=== PATIENT | male | born 1950 | race Caucasian/White ===

== ENCOUNTER 2020-05-16 17:22 | Observation (INO) | payer OTHER ==
[2020-05-16] MEDS ORDERED: ASPIRIN 81 MG PO STA (18:24)
[2020-05-16] MEDS ORDERED: NITROGLYCERIN OINT 1 INCH/GM PACKET TOPICAL STA (18:24)
--- NOTE | 2020-05-16 18:26 | ED ---
General Adult HPI - General Chief complaint: Chest Pain Stated complaint: Chest pain Time Seen by Provider: 05/16/20 18:00 Source: patient, RN notes reviewed Mode of arrival: ambulatory Limitations: no limitations - History of Present Illness Initial comments: Patient is a pleasant 70-year-old male presenting to the emergency Department with complaints of chest discomfort. Onset of symptoms was 2 days ago. Symptoms have gradually gotten worse. Symptoms do worsen with exertion. Discomfort feels like tightness without radiation. Patient states his left arm feels a little bit funny however. No associated nausea or dyspnea. Patient does get sweaty at times. Patient did have similar symptoms years ago associated with heart problems and needing stent placement. - Related Data Allergies Allergy/AdvReac Type Severity Reaction Status Date / Time No Known Allergies Allergy Verified 05/16/20 17:39 Review of Systems ROS Statement: Those systems with pertinent positive or pertinent negative responses have been documented in the HPI. ROS Other: All systems not noted in ROS Statement are negative. Constitutional: Denies: fever Eyes: Denies: eye pain ENT: Denies: ear pain Respiratory: Denies: cough, dyspnea Cardiovascular: Reports: chest pain Endocrine: Reports: fatigue Gastrointestinal: Denies: abdominal pain, nausea Genitourinary: Denies: dysuria Musculoskeletal: Denies: back pain Skin: Denies: rash Neurological: Denies: weakness Past Medical History Past Medical History: COPD Additional Past Medical History / Comment(s): hypercholestremia. History of Any Multi-Drug Resistant Organisms: None Reported Additional Past Surgical History / Comment(s): cardiac stent, right arm Past Psychological History: No Psychological Hx Reported Smoking Status: Current every day smoker Past Alcohol Use History: None Reported Past Drug Use History: Marijuana General Exam Limitations: no limitations General appearance: alert, in no apparent distress Head exam: Present: normocephalic Eye exam: Present: normal appearance Neck exam: Present: normal inspection Respiratory exam: Present: normal lung sounds bilaterally. Absent: chest wall tenderness Cardiovascular Exam: Present: regular rate, normal rhythm Expanded Peripheral pulses: 2+: Radial (R), Radial (L), Posterior Tibialis (R), Posterior Tibialis (L) GI/Abdominal exam: Present: soft. Absent: distended, tenderness Extremities exam: Present: normal inspection. Absent: pedal edema, calf tenderness Neurological exam: Present: alert Psychiatric exam: Present: normal affect, normal mood Skin exam: Present: normal color Course Vital Signs 05/16/20 17:36 Temperature 98.0 F Pulse Rate 83 Respiratory 16 Rate Blood Pressure 153/75 O2 Sat by Pulse 96 Oximetry EKG Findings - EKG Comments: EKG Findings:: Normal sinus rhythm 67. LA 182. QRS 142. QT 444. QTC 46 he 9. Normal axis. Right bundle branch block. No acute ST change. Medical Decision Making - Medical Decision Making Patient reevaluated and resting comfortably in bed. Patient is feeling better. Patient updated on results and plan. [facility] has been paged for admission covering for hospital call. - Lab Data Result diagrams: 05/16/20 18:54 05/16/20 18:54 Lab Results 05/16/20 05/16/20 05/16/20 Range/Units 18:54 18:54 18:54 WBC 11.6 H (3.8-10.6) k/uL RBC 4.76 (4.30-5.90) m/uL Hgb 15.4 (13.0-17.5) gm/dL Hct 45.0 (39.0-53.0) % MCV 94.6 (80.0-100.0) fL MCH 32.3 (25.0-35.0) pg MCHC 34.1 (31.0-37.0) g/dL RDW 12.6 (11.5-15.5) % Plt Count 251 (150-450) k/uL Neutrophils % 69 % Lymphocytes % 21 % Monocytes % 7 % Eosinophils % 1 % Basophils % 0 % Neutrophils # 8.0 H (1.3-7.7) k/uL Lymphocytes # 2.5 (1.0-4.8) k/uL Monocytes # 0.8 (0-1.0) k/uL Eosinophils # 0.1 (0-0.7) k/uL Basophils # 0.0 (0-0.2) k/uL PT 10.1 (9.0-12.0) sec INR 1.0 (<1.2) APTT 23.2 (22.0-30.0) sec Sodium 135 L (137-145) mmol/L Potassium 3.9 (3.5-5.1) mmol/L Chloride 104 (98-107) mmol/L Carbon Dioxide 22 (22-30) mmol/L Anion Gap 9 mmol/L BUN 10 (9-20) mg/dL Creatinine 0.50 L (0.66-1.25) mg/dL Est GFR (CKD-EPI)AfAm >90 (>60 ml/min/1.73 sqM) Est GFR (CKD-EPI)NonAf >90 (>60 ml/min/1.73 sqM) Glucose 121 H (74-99) mg/dL Calcium 10.0 (8.4-10.2) mg/dL Magnesium 1.9 (1.6-2.3) mg/dL Total Bilirubin 1.3 (0.2-1.3) mg/dL AST 30 (17-59) U/L ALT 21 (4-49) U/L Alkaline Phosphatase 87 (38-126) U/L Troponin I (0.000-0.034) ng/mL Total Protein 7.4 (6.3-8.2) g/dL Albumin 4.8 (3.5-5.0) g/dL 05/16/20 Range/Units 18:54 WBC (3.8-10.6) k/uL RBC (4.30-5.90) m/uL Hgb (13.0-17.5) gm/dL Hct (39.0-53.0) % MCV (80.0-100.0) fL MCH (25.0-35.0) pg MCHC (31.0-37.0) g/dL RDW (11.5-15.5) % Plt Count (150-450) k/uL Neutrophils % % Lymphocytes % % Monocytes % % Eosinophils % % Basophils % % Neutrophils # (1.3-7.7) k/uL Lymphocytes # (1.0-4.8) k/uL Monocytes # (0-1.0) k/uL Eosinophils # (0-0.7) k/uL Basophils # (0-0.2) k/uL PT (9.0-12.0) sec INR (<1.2) APTT (22.0-30.0) sec Sodium (137-145) mmol/L Potassium (3.5-5.1) mmol/L Chloride (98-107) mmol/L Carbon Dioxide (22-30) mmol/L Anion Gap mmol/L BUN (9-20) mg/dL Creatinine (0.66-1.25) mg/dL Est GFR (CKD-EPI)AfAm (>60 ml/min/1.73 sqM) Est GFR (CKD-EPI)NonAf (>60 ml/min/1.73 sqM) Glucose (74-99) mg/dL Calcium (8.4-10.2) mg/dL Magnesium (1.6-2.3) mg/dL Total Bilirubin (0.2-1.3) mg/dL AST (17-59) U/L ALT (4-49) U/L Alkaline Phosphatase (38-126) U/L Troponin I <0.012 (0.000-0.034) ng/mL Total Protein (6.3-8.2) g/dL Albumin (3.5-5.0) g/dL - Radiology Data Radiology results: image reviewed (Chest x-ray shows no acute process) Disposition Clinical Impression: Chest pain Disposition: ADMITTED IP TO THIS [facility] Is patient prescribed a controlled substance at d/c from ED?: No Referrals: Nonstaff,Physician [Primary Care Provider] - 1-2 days Decision Time: 19:52
[2020-05-16 19:11] LABS: Basophils % (A) 0 %; Eosinophils # (A) 0.1 k/uL (0-0.7); Eosinophils % (A) 1 %; HGB 15.4 gm/dL (13.0-17.5); Lymphocytes # (A) 2.5 k/uL (1.0-4.8); Lymphocytes % (A) 21 %; MCH 32.3 pg (25.0-35.0); MCHC 34.1 g/dL (31.0-37.0); MCV 94.6 fL (80.0-100.0); Mean Platelet Volume 8.5; Monocytes # (A) 0.8 k/uL (0-1.0); Monocytes % (A) 7 %; Neutrophils % (A) 69 %; Platelet Count 251 k/uL (150-450); RBC 4.76 m/uL (4.30-5.90); RDW 12.6 % (11.5-15.5); WBC 11.6 k/uL (3.8-10.6)
[2020-05-16 19:23] LABS: Partial Thromboplastin Time 23.2 sec (22.0-30.0); Prothrombin Time 10.1 sec (9.0-12.0)
[2020-05-16 19:25] LABS: ALT 21 U/L (4-49); AST 30 U/L (17-59); African American GFR (CKD) >90 (>60 ml/min/1.73 sqM); Albumin 4.8 g/dL (3.5-5.0); Alkaline Phosphatase 87 U/L (38-126); Anion Gap 9 mmol/L; Blood Urea Nitrogen 10 mg/dL (9-20); Carbon Dioxide 22 mmol/L (22-30); Chloride 104 mmol/L (98-107); Glucose 121 mg/dL (74-99); Magnesium 1.9 mg/dL (1.6-2.3); Non-African American GFR(CKD) >90 (>60 ml/min/1.73 sqM); Potassium 3.9 mmol/L (3.5-5.1); Sodium 135 mmol/L (137-145); Total Bilirubin 1.3 mg/dL (0.2-1.3); Total Protein 7.4 g/dL (6.3-8.2)
--- NOTE | 2020-05-16 19:42 | XR ---
EXAMINATION TYPE: XR chest 2V DATE OF EXAM: 05/16/2020 COMPARISON: NONE HISTORY: Short of breath TECHNIQUE: 2 views FINDINGS: Heart and mediastinum are normal. Lungs are clear. Diaphragm is normal. Bony thorax is inta ct. There are chest leads. IMPRESSION: No active cardiopulmonary disease. Normal heart.
[2020-05-16] MEDS ORDERED: NITROGLYCERIN SL TABS 0.4 MG TAB SUBLINGUAL PRN (19:52)
[2020-05-16] MEDS ORDERED: HEPARIN SODIUM,PORCINE 5,000 UNIT/ML 1 ML VIAL IV PRN (22:58)
[2020-05-16] MEDS ORDERED: HEPARIN SODIUM,PORCINE 5,000 UNIT/ML 1 ML VIAL IV ONE (22:58)
[2020-05-16] MEDS ORDERED: ATORVASTATIN 80 MG TAB PO STA (22:59)
[2020-05-16] MEDS ORDERED: HEPARIN SOD,PORK IN 0.45% NACL 25,000 UNIT in 0.45% NACL 1 250ML.BAG IV SCH (23:00)
--- NOTE | 2020-05-16 23:01 | P.HPIM ---
History of Present Illness H&P Date: 05/16/20 The patient is a 70-year-old male with a PMH of coronary artery disease status post [place] and multiple stents, hypertension, and hyperlipidemia, a resident of [place], presented to the ED with complaints of chest discomfort. The patient reports that over the past 3 days, he has noted left-sided intermittent sharp/pressure like chest pain. He reports that during each of those episodes, he had been golfing when he developed his discomfort with associated lightheadedness, nausea, and diaphoresis. The pain worsened over the past few days. Pain was nonexertional, nonradiating, 5 out of 10 in intensity, nonpleuritic, and lasted for roughly 3-4 hours earlier today, at which time he decided to activate EMS. He reports that he was golfing and proceeded to sit down now it did not alleviate his symptoms. The pain had resolved prior to his presentation to the emergency room and he reported no pain at time of interview. He denied cough, fever, chills, diarrhea, loss of consciousness, or palpita tions. He reports that his symptoms are very similar to when he previously had an [place] and received stents. He is currently in [place] visiting his elderly mother. In the emergency room, troponin was less than 0.012, chest x-ray unremarkable, with EKG showing normal sinus rhythm at 67 bpm with a right bundle branch block as reviewed by me. Review of Systems Pertinent positives and negatives as discussed in HPI, a complete review of systems was performed and all other systems are negative. Past Medical History Past Medical History: COPD Additional Past Medical History / Comment(s): hypercholestremia. History of Any Multi-Drug Resistant Organisms: None Reported Additional Past Surgical History / Comment(s): cardiac stent, right arm Past Psychological History: No Psychological Hx Reported Smoking Status: Current every day smoker Past Alcohol Use History: None Reported Past Drug Use History: Marijuana Medications and Allergies Home Medications Medication Instructions Recorded Confirmed Type Aspirin [Adult Low Dose Aspirin EC] 81 mg PO DAILY 05/16/20 05/16/20 History Atorvastatin Calcium [Lipitor] 40 mg PO DAILY 05/16/20 05/16/20 History Cholecalciferol [Vitamin D3 (25 1,000 unit PO DAILY 05/16/20 05/16/20 History Mcg = 1000 Iu)] Fish Oil/Dha/Epa [Fish Oil 1,200 1 cap PO DAILY 05/16/20 05/16/20 History mg Fish Oil] Metoprolol Tartrate 12.5 mg PO BID 05/16/20 05/16/20 History Multivitamins, Thera [Multivitamin 1 tab PO DAILY 05/16/20 05/16/20 History (formulary)] Omeprazole 20 mg PO DAILY 05/16/20 05/16/20 History Ubidecarenone [Co Q-10] 200 mg PO DAILY 05/16/20 05/16/20 History amLODIPine [Norvasc] 5 mg PO DAILY 05/16/20 05/16/20 History Allergies Allergy/AdvReac Type Severity Reaction Status Date / Time No Known Allergies Allergy Verified 05/16/20 21:11 Physical Exam Vitals: Vital Signs Temp Pulse Resp BP Pulse Ox 05/16/20 20:00 59 L 16 130/80 95 05/16/20 19:30 64 12 95 05/16/20 19:00 64 12 163/86 95 05/16/20 18:32 91 L 05/16/20 17:36 98.0 F 83 16 153/75 96 Intake and Output 05/16/20 05/16/20 05/16/20 06:59 14:59 22:59 Other: Weight 79.379 kg General: non toxic, no distress, appears at stated age, normal weight Derm: no unusual rashes/lesions no unusual ecchymoses, warm, dry Head: atraumatic, normocephalic, symmetric Eyes: EOMI, no lid lag, anicteric sclera, pupils equal round reactive to light ENT: Nose and ears atraumatic, no thrush, no pharyngeal erythema Neck: No thyromegaly, no cervical lymphadenopathy, trachea midline, supple Mouth: no lip lesion, mucus membranes moist Cardiovascular: S1S2 reg, no murmur, positive posterior tibial pulse bilateral, no edema, capillary refill less than 2 seconds Lungs: CTA bilateral, no rhonchi, no rales , no accessory muscle use Abdominal: soft, nontender to palpation, no guarding, no appreciable organomegaly, normal bowel sounds Ext: no gross muscle atrophy, muscle strength 5 out of 5 in all 4 extremities grossly, no contractures, Neuro: CN II-XI grossly intact, light touch intact all 4 extremities, finger to nose within normal limits, Psych: Alert, oriented, appropriate affect Results CBC & Chem 7: 05/16/20 23:30 05/16/20 18:54 Labs: Abnormal Lab Results - Last 24 Hours (Table) 05/16/20 05/16/20 Range/Units 18:54 18:54 WBC 11.6 H (3.8-10.6) k/uL Neutrophils # 8.0 H (1.3-7.7) k/uL Sodium 135 L (137-145) mmol/L Creatinine 0.50 L (0.66-1.25) mg/dL Glucose 121 H (74-99) mg/dL Assessment and Plan Plan: Unstable angina -Start heparin infusion -Continue with Lipitor, aspirin -Cardiac monitoring -Trend troponin -Cardiology consult -supplemental oxygen Leukocytosis, no signs of active infection at this time -Likely secondary to acute tress Chronic conditions: Hypertension, hyperlipidemia -Continue with home meds DVT prophylaxis -Heparin infusion The patient is admitted with an anticipated less than 2 midnight stay for evaluation of unstable angina CODE STATUS: Full Code Discussed with: Patient Anticipated discharge date: 1-[address]: Home A total of 40 minutes was spent on the care of this complex patient more than 50% of the time was spent in counseling and care coordination.
[2020-05-16 23:49] LABS: Basophils % (A) 0 %; Eosinophils # (A) 0.1 k/uL (0-0.7); Eosinophils % (A) 1 %; HCT 42.7 % (39.0-53.0); HGB 14.7 gm/dL (13.0-17.5); Lymphocytes # (A) 3.9 k/uL (1.0-4.8); Lymphocytes % (A) 33 %; MCH 32.9 pg (25.0-35.0); MCHC 34.4 g/dL (31.0-37.0); MCV 95.8 fL (80.0-100.0); Mean Platelet Volume 8.6; Monocytes # (A) 0.7 k/uL (0-1.0); Monocytes % (A) 6 %; Neutrophils # (A) 6.7 k/uL (1.3-7.7); Neutrophils % (A) 57 %; Platelet Count 222 k/uL (150-450); RBC 4.45 m/uL (4.30-5.90); RDW 12.8 % (11.5-15.5); WBC 11.8 k/uL (3.8-10.6)
[2020-05-17 00:13] LABS: INR 1.1 (<1.2)
[2020-05-17 00:25] LABS: Partial Thromboplastin Time 72.7 sec (22.0-30.0)
[2020-05-17] MEDS: NITROGLYCERIN OINT 1 INCH/GM PACKET TOPICAL SCH ×2 (02:25→06:43)
[2020-05-17 06:30] LABS: Basophils % (A) 0 %; Eosinophils # (A) 0.1 k/uL (0-0.7); Eosinophils % (A) 1 %; HCT 40.9 % (39.0-53.0); HGB 13.8 gm/dL (13.0-17.5); Lymphocytes # (A) 2.9 k/uL (1.0-4.8); Lymphocytes % (A) 32 %; MCH 32.3 pg (25.0-35.0); MCHC 33.8 g/dL (31.0-37.0); MCV 95.5 fL (80.0-100.0); Mean Platelet Volume 8.7; Monocytes # (A) 0.5 k/uL (0-1.0); Monocytes % (A) 6 %; Neutrophils # (A) 5.4 k/uL (1.3-7.7); Neutrophils % (A) 58 %; Platelet Count 226 k/uL (150-450); RBC 4.28 m/uL (4.30-5.90); RDW 12.6 % (11.5-15.5); WBC 9.2 k/uL (3.8-10.6)
[2020-05-17 06:54] LABS: Cholesterol 152 mg/dL (<200); HDL Cholesterol 51 mg/dL (40-60); LDL Cholesterol,Calculated 32 mg/dL (0-99); Triglycerides 344 mg/dL (<150)
[2020-05-17 07:10] VITALS: PULSE 66
[2020-05-17] MEDS ORDERED: PANTOPRAZOLE 40 MG TABLET PO SCH (07:30)
[2020-05-17 08:27] VITALS: BP 135/65; RESP 16; TEMP 97.7
[2020-05-17] MEDS ORDERED: amLODIPine 5 MG TAB PO SCH (09:00)
[2020-05-17] MEDS ORDERED: METOPROLOL TARTRATE 25 MG TAB PO SCH (09:00)
[2020-05-17] MEDS ORDERED: ASPIRIN 325 MG TAB PO SCH (09:00)
--- NOTE | 2020-05-17 09:49 | P.CRDCN ---
History of Present Illness Consult date: 05/17/20 Requesting physician: Adam Hopkins Reason for Consult (text): chest pain Chief complaint: dizziness, fatigue, chest pain History of present illness: this is a pleasant 70-year-old gentleman who resides in [place] and is here in [place] visiting his mother. He follows with Dr. [facility] out [facility] [place] [facility] [place]. He has a history of hypertension, hyperlipidemia, nicotine dependence, he smokes almost one pack per day, current everyday drinker usually 4 beers but has recently been taking shots of whiskey, history of CAD with 2 stents placed to the RCA about 2 years ago. He presented to the emergency department with complaints of progressively worsening fatigue and symptoms of exertional chest discomfort. He is also been experiencing diaphoresis. He's been experiencing some dizziness and lightheadedness but this is unrelated to his chest pain. The pain reminds him of what he experienced prior to his stenting. It is relieved with rest and is only occurring with activity. She has not tried nitroglycerin for the discomfort as he does not have any. According to him [facility] [place] [facility] was last seen last year. It is unclear when his last testing was but he believes it was done last year as well. EKG on admission showed sinus rhythm with a right bundle branch block.blood pressure was initially high on presentation but is better with a blood pressure 135/65 this morning. He has been afebrile. laboratory values on admission showed a white blood cell count 11.6, potassium 3.9, BUN 10, creatinine 0.5, troponins negative 3, elevated triglycerides at 344 with an LDL 32.chest x-ray on admission showed no active cardiopulmonary disease, normal heart.he is currently on aspirin, amlodipine 5 mg by mouth daily, metoprolol tartrate 12.5 mg by mouth twice a day, and Nitropaste. He's been initiated on a heparin drip per protocol. Upon examination this morning, patient is resting comfortably in bed. He has no current complaints of chest discomfort. In these had no complaints of dizziness or lightheadedness since admission. Past Medical History Past Medical History: COPD Additional Past Medical History / Comment(s): hypercholestremia. History of Any Multi-Drug Resistant Organisms: None Reported Additional Past Surgical History / Comment(s): cardiac stent, right arm Past Anesthesia/Blood Transfusion Reactions: No Reported Reaction Past Psychological History: No Psychological Hx Reported Smoking Status: Current every day smoker Past Alcohol Use History: None Reported Past Drug Use History: Marijuana Medications and Allergies Home Medications Medication Instructions Recorded Confirmed Type Aspirin [Adult Low Dose Aspirin EC] 81 mg PO DAILY 05/16/20 05/16/20 History Atorvastatin Calcium [Lipitor] 40 mg PO DAILY 05/16/20 05/16/20 History Cholecalciferol [Vitamin D3 (25 1,000 unit PO DAILY 05/16/20 05/16/20 History Mcg = 1000 Iu)] Fish Oil/Dha/Epa [Fish Oil 1,200 1 cap PO DAILY 05/16/20 05/16/20 History mg Fish Oil] Metoprolol Tartrate 12.5 mg PO BID 05/16/20 05/16/20 History Multivitamins, Thera [Multivitamin 1 tab PO DAILY 05/16/20 05/16/20 History (formulary)] Omeprazole 20 mg PO DAILY 05/16/20 05/16/20 History Ubidecarenone [Co Q-10] 200 mg PO DAILY 05/16/20 05/16/20 History amLODIPine [Norvasc] 5 mg PO DAILY 05/16/20 05/16/20 History Allergies Allergy/AdvReac Type Severity Reaction Status Date / Time No Known Allergies Allergy Verified 05/16/20 21:11 Physical Exam Vitals: Vital Signs Temp Pulse Pulse Resp BP BP BP 05/17/20 08:23 97.7 F 16 135/65 05/17/20 03:00 97.9 F 66 18 145/72 05/17/20 01:42 97.5 F L 60 17 132/85 05/16/20 22:20 98.0 F 61 18 115/62 05/16/20 22:18 61 18 115/62 05/16/20 20:00 59 L 16 130/80 05/16/20 19:30 64 12 05/16/20 19:00 64 12 163/86 05/16/20 18:32 05/16/20 17:36 98.0 F 83 16 153/75 Pulse Ox 05/17/20 08:23 96 05/17/20 03:00 97 05/17/20 01:42 97 05/16/20 22:20 95 08/14/20 22:18 95 05/16/20 20:00 95 05/16/20 19:30 95 05/16/20 19:00 95 05/16/20 18:32 91 L 05/16/20 17:36 96 Intake and Output 05/16/20 05/17/20 05/17/20 22:59 06:59 14:59 Intake Total 59.958 Balance 59.958 Intake: Intake, IV Titration 59.958 Amount Heparin Sod,Pork in 0.45% 59.958 NaCl 25,000 unit In 0.45 % NaCl 1 250ml.bag @ 12 UNITS/KG/HR 9.525 mls/hr IV .Q24H [facility] Rx#: [id number] Other: Voiding Method Toilet # Voids 2 Weight 79.379 kg PHYSICAL EXAMINATION: This is a 70-year-old male in no apparent distress at the time of my examination. VITAL SIGNS: Blood pressure 135/65, heart rate 66, respirations 16, temp 87.7F. Patient is 96% on room air. HEENT: Head is atraumatic, normocephalic. Pupils are equal, round. Sclerae anicteric. Conjunctivae are clear. Mucous membranes of the mouth are moist. Neck is supple. [There is no elevated jugular venous pressure]. No carotid bruit is heard. CHEST EXAMINATION:[ lungs reveal scattered rhonchi that clear with coughing. No wheezes or rales. Respirations even and nonlabored.] HEART EXAMINATION: [ Heart regular, positive S1 and S2. No S3. No S4. with a systolic murmur. ABDOMEN: Soft, nontender. Bowel sounds are heard. No organomegaly noted. EXTREMITIES:[ 2+ peripheral pulses with no evidence of peripheral edema and no calf tenderness noted]. NEUROLOGIC EXAMINATION: Patient is awake, alert and oriented x3. Results 05/17/20 06:12 05/16/20 18:54 Cardiac Enzymes 05/16/20 05/16/20 05/16/20 Range/Units 18:54 18:54 21:25 AST 30 (17-59) U/L Troponin I <0.012 <0.012 (0.000-0.034) ng/mL 05/17/20 Range/Units 01:25 AST (17-59) U/L Troponin I <0.012 (0.000-0.034) ng/mL Coagulation 05/16/20 05/16/20 05/17/20 Range/Units 18:54 23:30 06:12 PT 10.1 11.0 (9.0-12.0) sec APTT 23.2 72.7 H 38.7 H (22.0-30.0) sec Lipids 05/17/20 Range/Units 06:12 Triglycerides 344 H (<150) mg/dL Cholesterol 152 (<200) mg/dL HDL Cholesterol 51 (40-60) mg/dL CBC 05/16/20 05/16/20 05/17/20 Range/Units 18:54 23:30 06:12 WBC 11.6 H 11.8 H 9.2 (3.8-10.6) k/uL RBC 4.76 4.45 4.28 L (4.30-5.90) m/uL Hgb 15.4 14.7 13.8 (13.0-17.5) gm/dL Hct 45.0 42.7 40.9 (39.0-53.0) % Plt Count 251 222 226 (150-450) k/uL Comprehensive Metabolic Panel 05/16/20 Range/Units 18:54 Sodium 135 L (137-145) mmol/L Potassium 3.9 (3.5-5.1) mmol/L Chloride 104 (98-107) mmol/L Carbon Dioxide 22 (22-30) mmol/L BUN 10 (9-20) mg/dL Creatinine 0.50 L (0.66-1.25) mg/dL Glucose 121 H (74-99) mg/dL Calcium 10.0 (8.4-10.2) mg/dL AST 30 (17-59) U/L ALT 21 (4-49) U/L Alkaline Phosphatase 87 (38-126) U/L Total Protein 7.4 (6.3-8.2) g/dL Albumin 4.8 (3.5-5.0) g/dL Current Medications Generic Name Dose Route Start Last Admin Trade Name Freq PRN Reason Stop Dose Admin Amlodipine Besylate 5 mg 05/17/20 09:00 Norvasc PO DAILY [facility] Aspirin 325 mg 05/17/20 09:00 Aspirin PO DAILY [facility] Atorvastatin Calcium 80 mg 05/17/20 21:00 Lipitor PO HS NURA Heparin Sodium (Porcine) 0 unit 05/16/20 22:58 Heparin IV PER PROTOCOL PRN Low PTT Protocol Heparin Sodium/Sodium Chloride 250 mls @ 9.525 mls/hr 05/16/20 23:00 05/17/20 06:45 25,000 unit/ Sodium Chloride IV 12 units/kg/hr .Q24H NURA 9.525 mls/hr Titration Protocol 12 UNITS/KG/HR Metoprolol Tartrate 12.5 mg 05/17/20 09:00 Lopressor PO BID NURA Nitroglycerin 0.4 mg 05/16/20 19:52 Nitrostat SUBLINGUAL Q5M PRN Chest Pain Nitroglycerin 1 inch 05/17/20 00:00 05/17/20 06:43 Nitro-Bid Oint TOPICAL Not Given Q6HR NURA Pantoprazole Sodium 40 mg 05/17/20 07:30 05/17/20 06:45 Protonix PO 40 mg DAILY@0730 NURA Administration Sodium Chloride 10 ml 05/16/20 21:00 05/16/20 23:33 Saline Flush IV Not Given BID NURA Intake and Output 05/16/20 05/17/20 05/17/20 22:59 06:59 14:59 Intake Total 59.958 Balance 59.958 Intake: Intake, IV Titration 59.958 Amount Heparin Sod,Pork in 0.45% 59.958 NaCl 25,000 unit In 0.45 % NaCl 1 250ml.bag @ 12 UNITS/KG/HR 9.525 mls/hr IV .Q24H [facility] Rx#: [id number] Other: Voiding Method Toilet # Voids 2 Weight 79.379 kg 05/17/20 06:12 05/16/20 18:54 EKG Interpretations (text) sinus rhythm with a right bundle branch block Assessment and Plan Assessment: #1 symptoms of chest discomfort with fatigue and diaphoresis, highly suggestive of angina #2 CAD with stenting to the RCA done about 2 years ago #3 hypertension #4 hyperlipidemia #5 nicotine dependence #6 alcohol use Plan: From Cardiology's perspective, we recommend coronary angiography for definitive diagnosis. The risks, benefits and alternative therapies for the above-mentioned procedure and for both sedation/analgesia as well as necessary blood product administration, if indicated, have been discussed with the patient. The patient has indicated understanding and acceptance of the risks and procedures discussed. Questions have been answered appropriately and he is agreeable to move forward with the above stated procedure. further recommendations to follow depending on findings. [employer] note has been reviewed, I agree with a documented findings and plan of care. Patient was seen and examined.
[2020-05-17] MEDS ORDERED: SODIUM CHLORIDE 0.9% 1,000 ML in EMPTY BAG 1 BAG IV ONE (10:13)
[2020-05-17] MEDS ORDERED: ATORVASTATIN 80 MG TAB PO STA (10:13)
[2020-05-17] MEDS ORDERED: ASPIRIN 325 MG TAB PO STA (10:13)
[2020-05-17] MEDS ORDERED: ALPRAZolam 0.5 MG TAB PO PRN (10:13)
[2020-05-17] MEDS ORDERED: NITROGLYCERIN SL TABS 0.4 MG TAB SUBLINGUAL PRN (10:13)
[2020-05-17] MEDS ORDERED: ALPRAZolam 0.25 MG TAB PO PRN (10:13)
[2020-05-17] MEDS ORDERED: ATORVASTATIN 80 MG TAB PO SCH (21:00)
--- NOTE | 2020-05-17 21:59 | P.DS ---
Providers Date of admission: 05/16/20 19:54 Expected date of discharge: 05/17/20 Attending physician: Adam Hopkins MD Consults: 05/16/20 19:52 Consult Physician Urgent Consulting Provider: Tadeo Hillman Consult Reason/Comments: cp Do you want consulting provider notified?: Yes Primary care physician: Physician Nonstaff Hospital Course: Discharge Diagnosis: This is not a discharge summary but a summary of care as patient left AGAINST MEDICAL ADVICE Unstable angina Coronary artery disease History of myocardial infarction Hypertension Dyslipidemia Leukocytosis Tobacco abuse Alcohol use Hospital Course: Patient is a 70-year-old male for history of coronary artery disease status post multiple myocardial infarctions with stents, hypertension, and dyslipidemia who is in [place] visiting from [place] who presented to the emergency department with chest discomfort. In the ER he underwent extensive evaluation. His EKG showed a right bundle branch block with T-wave inversion in V1 through V3. Initial troponin was negative. He is admitted as chest pain observation. Recurrent troponin was negative. He was started on a heparin drip, and nitro. He had some relief of his chest pain. He refused further nitro. He was also maintained on a beta kate. Cardiology was consulted and recommended cardiac catheterization. Patient asked to come complete this in [place] once he returned. Both myself and the cardiology nurse practitioner advised that this should be done here as he could have worsening symptoms including myocardial infarction, arrhythmia, and should he put off having this procedure done. Patient initially agreed and plans were for cardiac cath on 05/17. I was notified by nursing that patient had left AMA after he had already left the building. Patient seen and examined at bedside. Chest pain free, feeling much better, thinks he is back to baseline Vital signs reviewed and stable. General: non toxic, no distress, thin, disheveled Derm: warm, dry Head: atraumatic, normocephalic, symmetric Eyes: EOMI, no lid lag, anicteric sclera Mouth: no lip lesion, mucus membranes moist Cardiovascular: S1S2 reg, no murmur, positive posterior tibial pulse bilateral, Lungs: CTA bilateral, no rhonchi, no rales , no accessory muscle use Abdominal: soft, nontender to palpation, no guarding, no appreciable organomegaly Ext: no gross muscle atrophy, no edema, no contractures Neuro: CN II-XI grossly intact, no focal neuro deficits Psych: Alert, oriented, appropriate affect A total of 25 minutes of time were spent preparing this complex discharge summary . Patient Condition at Discharge: Stable Plan - Discharge Summary Discharge Rx Participant: No New Discharge Prescriptions: No Action Fish Oil/Dha/Epa [Fish Oil 1,200 mg Fish Oil] 1 cap PO DAILY Cholecalciferol [Vitamin D3 (25 Mcg = 1000 Iu)] 1,000 unit PO DAILY amLODIPine [Norvasc] 5 mg PO DAILY Multivitamins, Thera [Multivitamin (formulary)] 1 tab PO DAILY Aspirin [Adult Low Dose Aspirin EC] 81 mg PO DAILY Omeprazole 20 mg PO DAILY Metoprolol Tartrate 12.5 mg PO BID Atorvastatin Calcium [Lipitor] 40 mg PO DAILY Ubidecarenone [Co Q-10] 200 mg PO DAILY Albuterol Sulfate [Ventolin HFA] 1 - 2 puff INHALATION RT-QID PRN PRN Reason: Shortness Of Breath Discharge Medication List Aspirin [Adult Low Dose Aspirin EC] 81 mg PO DAILY 05/16/20 [History] Atorvastatin Calcium [Lipitor] 40 mg PO DAILY 05/16/20 [History] Cholecalciferol [Vitamin D3 (25 Mcg = 1000 Iu)] 1,000 unit PO DAILY 05/16/20 [History] Fish Oil/Dha/Epa [Fish Oil 1,200 mg Fish Oil] 1 cap PO DAILY 05/16/20 [History] Metoprolol Tartrate 12.5 mg PO BID 05/16/20 [History] Multivitamins, Thera [Multivitamin (formulary)] 1 tab PO DAILY 05/16/20 [History] Omeprazole 20 mg PO DAILY 05/16/20 [History] Ubidecarenone [Co Q-10] 200 mg PO DAILY 05/16/20 [History] amLODIPine [Norvasc] 5 mg PO DAILY 05/16/20 [History] Albuterol Sulfate [Ventolin HFA] 1 - 2 puff INHALATION RT-QID PRN 05/17/20 [History] Follow up Appointment(s)/Referral(s): Nonstaff,Physician [Primary Care Provider] - 1-2 days Discharge Disposition: Left Against Medical Advice
--- NOTE | 2020-05-20 08:37 | ECHOF ---
Referral Reason: MEASUREMENTS -------- HEIGHT: 180.3 cm WEIGHT: 79.4 kg BP: RVIDd: 2.9 cm (< 3.3) IVSd: 1.0 cm (0.6 - 1.1) LVIDd: 4.6 cm (3.9 - 5.3) LVPWd: 0.9 cm (0.6 - 1.1) EDV(Teich): 96 ml IVSs: 1.2 cm LVIDs: 3.2 cm LVPWs: 1.5 cm %IVS Thck: 21 % ESV(Teich): 42 ml EF(Teich): 56 % %FS: 29 % SV(Teich): 54 ml IVC: 0.9 cm LALs A4C: 4.0 cm LAAs A4C: 10.6 cm LAESV A-L A4C: 23 ml LAESV MOD A4C: 22 ml LALs A2C: 4.5 cm LAAs A2C: 12.8 cm LAESV A-L A2C: 31 ml LAESV MOD A2C: 30 ml LAESV(A-L): 28 ml LAESV Index (A-L): 14.23 ml/m Ao Diam: 3.4 cm (2.0 - 3.7) AV Cusp: 2.1 cm (1.5 - 2.6) LA Diam: 2.8 cm (2.7 - 3.8) MV EXCURSION: 16.659 mm (> 18.000) MV EF SLOPE: 107 mm/s (70 - 150) EPSS: 0.6 cm MV E Mode: 0.71 m/s MV DecT: 312 ms MV Dec [place]: 2.3 m/s MV A Mode: 0.88 m/s MV E/A Ratio: 0.81 MV PHT: 90 ms MR Vmax: 1.53 m/s MR maxP.31 mmHg AV Vmax: 1.38 m/s AV maxP.67 mmHg AR Vmax: 3.16 m/s AR maxP.95 mmHg AR PHT: 1400 ms AR Dec Time: 4828 ms AR Dec [place]: 0.7 m/s TR Vmax: 1.22 m/s TR maxP.99 mmHg RAP: 5.00 mmHg RVSP: 10.99 mmHg FINDINGS -------- Sinus rhythm. This was a technically adequate study. The left ventricular size is normal. Left ventricular wall thickness is normal. Overall left vent ricular systolic function is normal with, an EF between 55 - 60 %. The diastolic filling pattern is normal for the age of the patient 9.75. The right ventricle is normal in size. The left atrial size is normal. Normal LA size by volume 22+/-6 ml/m2. The right atrial size is normal. Interatrial and interventricular septum intact. The aortic valve is trileaflet, and appears structurally normal. No aortic stenosis or regurgitation. The mitral valve is normal. Mild mitral regurgitation is present. The tricuspid valve appears structurally normal. Mild tricuspid regurgitation present. Right vent ricular systolic pressure is normal at < 35 mmHg. There is no pulmonic regurgitation present. The aortic root size is normal. Normal inferior vena cava with normal inspiratory collapse consistent with estimated right atrial pre ssure of 5 mmHg. There is no pericardial effusion. CONCLUSIONS -------- 1. Left ventricular wall thickness is normal. 2. Overall left ventricular systolic function is normal with, an EF between 55 - 60 %. 3. The diastolic filling pattern is normal for the age of the patient 9.75 4. Normal LA size by volume 22+/-6 ml/m2. 5. The aortic valve is trileaflet, and appears structurally normal. No aortic stenosis or regurgitati on. 6. Mild mitral regurgitation is present. 7. Mild tricuspid regurgitation present. COMMUNICATIONS INSTRUCTOR: Kenia Vegas RDCS
== END 2020-05-17 11:58 | disposition left against medical advice (07) ==
LOC: EC 17:22 → 3NCARDOBS 19:54
PROVIDERS: ADMIT Internal Medicine; ATTEND Internal Medicine
DX: I25.110 Atherosclerotic heart disease of native coronary artery with unstable angina pectoris (principal); I10 Essential (primary) hypertension; I45.10 Unspecified right bundle-branch block; J44.9 Chronic obstructive pulmonary disease, unspecified; E78.5 Hyperlipidemia, unspecified; E78.00 Pure hypercholesterolemia, unspecified; D72.829 Elevated white blood cell count, unspecified; Z95.5 Presence of coronary angioplasty implant and graft; F17.200 Nicotine dependence, unspecified, uncomplicated; I25.2 Old myocardial infarction; Z79.82 Long term (current) use of aspirin; Z79.899 Other long term (current) drug therapy; Z72.89 Other problems related to lifestyle; Z53.29 Procedure and treatment not carried out because of patient's decision for other reasons
CPT/HCPCS: 93005 ×2; 96365; 96366; 96376; 99285; 36415; 93306; 80061; 80053; 83735; 84484 ×2; 85025 ×2; 85610; 85730 ×2; 71046; G0378 ×2; J1644 ×2

== ENCOUNTER 2020-05-18 15:35 | Observation (INO) | payer MEDICARE, OTHER ==
[2020-05-18] MEDS ORDERED: NITROGLYCERIN SL TABS 0.4 MG TAB SUBLINGUAL PRN (16:09)
[2020-05-18] MEDS ORDERED: ASPIRIN 81 MG PO STA (16:09)
--- NOTE | 2020-05-18 16:48 | XR ---
EXAMINATION TYPE: XR chest 2V DATE OF EXAM: 05/18/2020 COMPARISON: 05/16/2020 HISTORY: Chest pain TECHNIQUE: FINDINGS: Heart and mediastinum are normal. Lungs are clear. Diaphragm is normal. Bony thorax appears normal. IMPRESSION: Normal chest. No change.
--- NOTE | 2020-05-18 16:50 | ED ---
Chest Pain HPI - General Chief Complaint: Chest Pain Stated Complaint: Dizzy,chest pain Time Seen by Provider: 05/18/20 15:51 Source: patient, RN notes reviewed, old records reviewed Mode of arrival: wheelchair - History of Present Illness Initial Comments: This is a 70-year-old male presenting for persistent chest pain. History of heart disease and stents. Patient was admitted recently for chest pain with Tuesday secondary to anxiety and and event with his family. At this time patient states he is less nervous for this event and is willing to go through with procedure. Still having chest pain MD Complaint: chest pain -: days(s) Onset: during rest, during exertion Pain Location: substernal Pain Radiation: none Severity: mild Severity scale (1-10): 3 Quality: tightness, heaviness Consistency: intermittent Improves With: nothing Worsens With: nothing Other Symptoms: palpitations Treatments Prior to Arrival: none - Related Data Home Medications Medication Instructions Recorded Confirmed Aspirin [Adult Low Dose Aspirin EC] 81 mg PO DAILY 05/16/20 05/17/20 Atorvastatin Calcium [Lipitor] 40 mg PO DAILY 05/16/20 05/17/20 Cholecalciferol [Vitamin D3 (25 1,000 unit PO DAILY 05/16/20 05/17/20 Mcg = 1000 Iu)] Fish Oil/Dha/Epa [Fish Oil 1,200 1 cap PO DAILY 05/16/20 05/17/20 mg Fish Oil] Metoprolol Tartrate 12.5 mg PO BID 05/16/20 05/17/20 Multivitamins, Thera [Multivitamin 1 tab PO DAILY 05/16/20 05/17/20 (formulary)] Omeprazole 20 mg PO DAILY 05/16/20 05/17/20 Ubidecarenone [Co Q-10] 200 mg PO DAILY 05/16/20 05/17/20 amLODIPine [Norvasc] 5 mg PO DAILY 05/16/20 05/17/20 Albuterol Sulfate [Ventolin HFA] 1 - 2 puff INHALATION RT-QID PRN 05/17/20 05/17/20 Allergies Allergy/AdvReac Type Severity Reaction Status Date / Time No Known Allergies Allergy Verified 05/18/20 15:40 Review of Systems ROS Statement: Those systems with pertinent positive or pertinent negative responses have been documented in the HPI. ROS Other: All systems not noted in ROS Statement are negative. EKG Findings - EKG Comments: EKG Findings:: EKG is sinus rhythm 70 IA 170 QRS 146 QTc 466 Past Medical History Past Medical History: COPD Additional Past Medical History / Comment(s): hypercholestremia. History of Any Multi-Drug Resistant Organisms: None Reported Additional Past Surgical History / Comment(s): cardiac stent, right arm Past Anesthesia/Blood Transfusion Reactions: No Reported Reaction Past Psychological History: No Psychological Hx Reported Smoking Status: Current every day smoker Past Alcohol Use History: None Reported Past Drug Use History: Marijuana General Exam General appearance: alert, in no apparent distress, anxious Head exam: Present: atraumatic, normocephalic, normal inspection Eye exam: Present: normal appearance, PERRL, EOMI. Absent: scleral icterus, conjunctival injection, periorbital swelling ENT exam: Present: normal exam, mucous membranes moist Neck exam: Present: normal inspection. Absent: tenderness, meningismus, lymphadenopathy Respiratory exam: Present: normal lung sounds bilaterally. Absent: respiratory distress, wheezes, rales, rhonchi, stridor Cardiovascular Exam: Present: regular rate, normal rhythm, normal heart sounds. Absent: systolic murmur, diastolic murmur, rubs, gallop, clicks GI/Abdominal exam: Present: soft, normal bowel sounds. Absent: distended, tenderness, guarding, rebound, rigid Extremities exam: Present: normal inspection, full ROM, normal capillary refill. Absent: tenderness, pedal edema, joint swelling, calf tenderness Back exam: Present: normal inspection Neurological exam: Present: alert, oriented X3, CN II-XII intact Psychiatric exam: Present: normal affect, normal mood Skin exam: Present: warm, dry, intact, normal color. Absent: rash Course Vital Signs 05/18/20 15:38 Temperature 98.2 F Pulse Rate 79 Respiratory 20 Rate Blood Pressure 155/82 O2 Sat by Pulse 94 L Oximetry - Reevaluation(s) Reevaluation #1: 05/18/20 16:49 Medical records reviewed 05/18/20 16:49 Prior hospitalizations reviewed Reevaluation #2: 05/18/20 16:49 Patient does have persistent episodic chest pain Chest Pain MDM - MDM 70 male with persistent chest pain scheduled to have heart catheterization signed out AMA secondary to anxiety and event with his family, patient related to be admitted for cardiology today Disposition Clinical Impression: Chest pain Disposition: ADMITTED IP TO THIS HOSP Condition: Fair Is patient prescribed a controlled substance at d/c from ED?: No Referrals: None,Stated [Primary Care Provider] - 1-2 days
[2020-05-18 16:51] LABS: Basophils # (A) 0.1 k/uL (0-0.2); Basophils % (A) 0 %; Eosinophils # (A) 0.1 k/uL (0-0.7); Eosinophils % (A) 1 %; HCT 46.6 % (39.0-53.0); HGB 15.8 gm/dL (13.0-17.5); Lymphocytes # (A) 2.2 k/uL (1.0-4.8); Lymphocytes % (A) 17 %; MCH 32.1 pg (25.0-35.0); MCHC 33.9 g/dL (31.0-37.0); MCV 94.8 fL (80.0-100.0); Mean Platelet Volume 8.5; Monocytes # (A) 0.6 k/uL (0-1.0); Monocytes % (A) 4 %; Neutrophils # (A) 9.6 k/uL (1.3-7.7); Neutrophils % (A) 75 %; Platelet Count 247 k/uL (150-450); RBC 4.91 m/uL (4.30-5.90); RDW 12.4 % (11.5-15.5); WBC 12.9 k/uL (3.8-10.6)
[2020-05-18 17:04] LABS: ALT 22 U/L (4-49); AST 30 U/L (17-59); African American GFR (CKD) >90 (>60 ml/min/1.73 sqM); Albumin 4.8 g/dL (3.5-5.0); Alkaline Phosphatase 96 U/L (38-126); Anion Gap 10 mmol/L; Blood Urea Nitrogen 20 mg/dL (9-20); Carbon Dioxide 22 mmol/L (22-30); Chloride 106 mmol/L (98-107); Glucose 105 mg/dL (74-99); Magnesium 1.8 mg/dL (1.6-2.3); Non-African American GFR(CKD) >90 (>60 ml/min/1.73 sqM); Potassium 3.9 mmol/L (3.5-5.1); Sodium 138 mmol/L (137-145); Total Bilirubin 0.9 mg/dL (0.2-1.3); Total Protein 7.4 g/dL (6.3-8.2)
[2020-05-18 17:09] LABS: INR 0.9 (<1.2); Prothrombin Time 9.7 sec (9.0-12.0)
[2020-05-18 17:37] LABS: Partial Thromboplastin Time 19.1 sec (22.0-30.0)
[2020-05-18] MEDS ORDERED: HEPARIN SODIUM,PORCINE 5,000 UNIT/ML 1 ML VIAL IV PRN (19:09)
[2020-05-18] MEDS ORDERED: HEPARIN SODIUM,PORCINE 5,000 UNIT/ML 1 ML VIAL IV ONE (19:09)
[2020-05-18] MEDS ORDERED: HEPARIN SOD,PORK IN 0.45% NACL 25,000 UNIT in 0.45% NACL 1 250ML.BAG IV SCH (19:15)
[2020-05-18] MEDS: METOPROLOL TARTRATE 12.5 MG TAB PO SCH (20:50)
[2020-05-18] MEDS ORDERED: SODIUM CHLORIDE 0.9% 1,000 ML in EMPTY BAG 1 BAG IV ONE (21:08)
--- NOTE | 2020-05-18 21:23 | P.HPIM ---
History of Present Illness H&P Date: 05/18/20 Patient is a 70-year-old male with a PMH of coronary artery disease status post multiple stents, active tobacco abuse, hypertension, and hyperlipidemia who presented to the ED with complaints of chest discomfort. Of note, the patient was admitted to [facility] on 05/18 for similar complaints though had decided to leave AGAINST MEDICAL ADVICE after becoming anxious and having a panic attack as per the patient now. At the time, the patient had reported that he had family issues to attend to. The patient reports that after returning to home, he has continued to have intermittent substernal pressure-like chest discomfort with the most recent episode occurring earlier this morning. He reports that he had the pain at around 7 AM when he was sitting down having coffee, was pressure- like, nonradiating, with associated nausea, diaphoresis, and shortness of breath. He attempted to walk which exacerbated the pain. The pain lasted for around 15 minutes and then resolved spontaneously. He initially had presented with similar episodes with associated dizziness as well occurring over the past 1 week. The patient is a resident of [place] and was visiting [place] to visit his mother. In the emergency room, EKG revealed a normal sinus rhythm at 70 bpm with a right bundle amirah block as reviewed by me. Chest x-ray was unremarkable. Laboratory evaluation revealed a troponin less than 0.012 and WBC count 12.9. He was admitted for further evaluation of his chest pain. Review of Systems Pertinent positives and negatives as discussed in HPI, a complete review of systems was performed and all other systems are negative. Past Medical History Past Medical History: COPD Additional Past Medical History / Comment(s): hypercholestremia. History of Any Multi-Drug Resistant Organisms: None Reported Additional Past Surgical History / Comment(s): cardiac stent, right arm Past Anesthesia/Blood Transfusion Reactions: No Reported Reaction Past Psychological History: No Psychological Hx Reported Smoking Status: Current every day smoker Past Alcohol Use History: None Reported Past Drug Use History: Marijuana Medications and Allergies Home Medications Medication Instructions Recorded Confirmed Type Aspirin [Adult Low Dose Aspirin EC] 81 mg PO DAILY 05/16/20 05/18/20 History Atorvastatin Calcium [Lipitor] 40 mg PO DAILY 05/16/20 05/18/20 History Cholecalciferol [Vitamin D3 (25 1,000 unit PO DAILY 05/16/20 05/18/20 History Mcg = 1000 Iu)] Fish Oil/Dha/Epa [Fish Oil 1,200 1 cap PO DAILY 05/16/20 05/18/20 History mg Fish Oil] Metoprolol Tartrate 12.5 mg PO BID 05/16/20 05/18/20 History Multivitamins, Thera [Multivitamin 1 tab PO DAILY 05/16/20 05/18/20 History (formulary)] Omeprazole 20 mg PO DAILY 05/16/20 05/18/20 History Ubidecarenone [Co Q-10] 200 mg PO DAILY 05/16/20 05/18/20 History amLODIPine [Norvasc] 5 mg PO DAILY 05/16/20 05/18/20 History Albuterol Sulfate [Ventolin HFA] 1 - 2 puff INHALATION RT-QID PRN 05/17/2005/03 History Allergies Allergy/AdvReac Type Severity Reaction Status Date / Time No Known Allergies Allergy Verified 05/18/20 18:22 Physical Exam Vitals: Vital Signs Temp Pulse Resp BP Pulse Ox 05/18/20 18:00 61 147/112 05/18/20 17:30 63 141/82 95 05/18/20 17:00 63 154/85 95 05/18/20 16:47 77 95 05/18/20 15:38 98.2 F 79 20 155/82 94 L Intake and Output 05/18/20 05/18/20 05/18/20 06:59 14:59 22:59 Other: Weight 77.564 kg General: non toxic, no distress, appears at stated age, normal weight Derm: no unusual rashes/lesions no unusual ecchymoses, warm, dry Head: atraumatic, normocephalic, symmetric Eyes: EOMI, no lid lag, anicteric sclera, pupils equal round reactive to light ENT: Nose and ears atraumatic, no thrush, no pharyngeal erythema Neck: No thyromegaly, no cervical lymphadenopathy, trachea midline, supple Mouth: no lip lesion, mucus membranes moist Cardiovascular: S1S2 reg, no murmur, positive posterior tibial pulse bilateral, no edema, capillary refill less than 2 seconds Lungs: CTA bilateral, no rhonchi, no rales , no accessory muscle use Abdominal: soft, nontender to palpation, no guarding, no appreciable organomegaly, normal bowel sounds Ext: no gross muscle atrophy, muscle strength 5 out of 5 in all 4 extremities grossly, no contractures, Neuro: CN II-XI grossly intact, light touch intact all 4 extremities, finger to nose within normal limits, Psych: Alert, oriented, appropriate affect Results CBC & Chem 7: 05/18/20 16:09 05/18/20 16:09 Labs: Abnormal Lab Results - Last 24 Hours (Table) 05/18/20 05/18/20 05/18/20 Range/Units 16:09 16:09 16:09 WBC 12.9 H (3.8-10.6) k/uL Neutrophils # 9.6 H (1.3-7.7) k/uL APTT 19.1 L (22.0-30.0) sec Creatinine 0.59 L (0.66-1.25) mg/dL Glucose 105 H (74-99) mg/dL Thrombosis Risk Factor Assmnt - Choose All That Apply Each Factor Represents 1 point: Abnormal pulmonary function (COPD) Each Risk Factor Represents 2 Points: Age 61-74 years Thrombosis Risk Factor Assessment Total Risk Factor Score: 3 Thrombosis Risk Factor Assessment Level: Moderate Risk Assessment and Plan Plan: Unstable angina -Cardiology consulted: Had recommended a cardiac cath on previous admission -Continue with heparin infusion, aspirin, Lipitor -Cardiac monitoring -Nitroglycerin when necessary -Supplemental oxygen -Trend troponin Chronic conditions: Hypertension, hyperlipidemia -Continue with home meds DVT prophylaxis -Heparin infusion The patient is admitted with an anticipated less than 2 midnight stay for evaluation of unstable angina CODE STATUS: Full COde Discussed with: Patient Anticipated discharge date: 1-[address]: Home A total of 40 minutes was spent on the care of this complex patient more than 50% of the time was spent in counseling and care coordination.
[2020-05-18 23:11] VITALS: RESP 16
[2020-05-19 04:27] LABS: Basophils % (A) 0 %; Eosinophils # (A) 0.1 k/uL (0-0.7); Eosinophils % (A) 1 %; HCT 40.7 % (39.0-53.0); HGB 14.3 gm/dL (13.0-17.5); Lymphocytes # (A) 3.2 k/uL (1.0-4.8); Lymphocytes % (A) 35 %; MCH 33.5 pg (25.0-35.0); MCV 95.6 fL (80.0-100.0); Mean Platelet Volume 9.5; Monocytes # (A) 0.6 k/uL (0-1.0); Monocytes % (A) 6 %; Neutrophils % (A) 55 %; Platelet Count 199 k/uL (150-450); RBC 4.26 m/uL (4.30-5.90); RDW 12.4 % (11.5-15.5); WBC 9.1 k/uL (3.8-10.6)
[2020-05-19 04:40] LABS: Partial Thromboplastin Time 34.5 sec (22.0-30.0); Prothrombin Time 10.3 sec (9.0-12.0)
[2020-05-19 05:01] LABS: Cholesterol 146 mg/dL (<200); HDL Cholesterol 53 mg/dL (40-60); LDL Cholesterol,Calculated 43 mg/dL (0-99); Triglycerides 251 mg/dL (<150)
[2020-05-19] MEDS ORDERED: ATORVASTATIN 80 MG TAB PO ONE (06:00)
[2020-05-19] MEDS: METOPROLOL TARTRATE 12.5 MG TAB PO SCH (06:40)
[2020-05-19] MEDS ORDERED: ATORVASTATIN 40 MG TAB PO SCH (09:00)
[2020-05-19] MEDS ORDERED: ASPIRIN 81 MG PO SCH (09:00)
[2020-05-19] MEDS ORDERED: MULTIVITAMINS, THERA 1 EACH TAB PO SCH (09:00)
[2020-05-19] MEDS ORDERED: PANTOPRAZOLE 40 MG TABLET PO SCH (09:00)
[2020-05-19] MEDS ORDERED: ASPIRIN 325 MG TAB PO SCH (09:00)
[2020-05-19] MEDS ORDERED: CHOLECALCIFEROL 1,000 UNIT TAB PO SCH (09:00)
[2020-05-19] MEDS ORDERED: amLODIPine 5 MG TAB PO SCH (09:00)
--- NOTE | 2020-05-19 09:08 | P.CRDCN ---
History of Present Illness Consult date: 05/19/20 Chief complaint: Chest pain History of present illness: This is a very pleasant 70-year-old gentleman with coronary artery disease and previous stenting of unknown details, this stenting were performed at [place] where the patient used to follow-up at the [facility] in [place] as well as history of hypertension and dyslipidemia presented to the emergency room complaining of chest discomfort. The patient states that he was golfing yesterday when he st arted experiencing discomfort in the chest. He described the discomfort as sharp/dull kind of discomfort in the mid of the chest without any radiation to the arms or neck or shoulders and without any associated symptoms of sweating or syncope. Beside that he describes what it seems to be chronic dizziness and lightheadedness. No feeling of heart racing or fluttering. The EKG showed sinus rhythm with RBBB. The chest x-ray did not show any acute abnormalities. A troponin was checked and came in to be unremarkable. Currently the patient is chest pain-free.the blood pressure has been elevated and currently is on Norvasc at 5 mg by mouth daily which I'm going to increase to 10 mg by mouth daily. Beside that I'm going to perform an exercise treadmill stress test to rule out any severe underlying coronary artery disease. The way home described the symptoms of chest discomfort seems to be very atypical for angina. At this point I am going to obtain a stress echocardiogram to rule out severe underlying coronary artery disease and follow-up with the patient. Past Medical History Past Medical History: COPD Additional Past Medical History / Comment(s): hypercholestremia. History of Any Multi-Drug Resistant Organisms: None Reported Additional Past Surgical History / Comment(s): cardiac stent, right arm Past Anesthesia/Blood Transfusion Reactions: No Reported Reaction Past Psychological History: No Psychological Hx Reported Smoking Status: Current every day smoker Past Alcohol Use History: None Reported Past Drug Use History: Marijuana Medications and Allergies Home Medications Medication Instructions Recorded Confirmed Type Aspirin [Adult Low Dose Aspirin EC] 81 mg PO DAILY 05/16/20 05/18/20 History Atorvastatin Calcium [Lipitor] 40 mg PO DAILY 05/16/20 05/18/20 History Cholecalciferol [Vitamin D3 (25 1,000 unit PO DAILY 05/16/20 05/18/20 History Mcg = 1000 Iu)] Fish Oil/Dha/Epa [Fish Oil 1,200 1 cap PO DAILY 05/16/20 05/18/20 History mg Fish Oil] Metoprolol Tartrate 12.5 mg PO BID 05/16/20 05/18/20 History Multivitamins, Thera [Multivitamin 1 tab PO DAILY 05/16/20 05/18/20 History (formulary)] Omeprazole 20 mg PO DAILY 05/16/20 05/18/20 History Ubidecarenone [Co Q-10] 200 mg PO DAILY 05/16/20 05/18/20 History amLODIPine [Norvasc] 5 mg PO DAILY 05/16/20 05/18/20 History Albuterol Sulfate [Ventolin HFA] 1 - 2 puff INHALATION RT-QID PRN 05/17/20 05/18/20 History Allergies Allergy/AdvReac Type Severity Reaction Status Date / Time No Known Allergies Allergy Verified 05/18/20 18:22 Physical Exam Vitals: Vital Signs Temp Pulse Pulse Resp BP BP Pulse Ox 05/19/20 03:00 98.0 F 61 16 166/75 95 05/18/20 21:00 98.0 F 70 16 161/67 96 05/18/20 18:00 61 147/112 05/18/20 17:30 63 141/82 95 05/18/20 17:00 63 154/85 95 05/18/20 16:47 77 95 05/18/20 15:38 98.2 F 79 20 155/82 94 L Intake and Output 05/18/20 05/19/20 05/19/20 22:59 06:59 14:59 Intake Total 1080 75.201 6.516 Balance 1080 75.201 6.516 Intake: Intake, IV Titration 75.201 6.516 Amount Heparin Sod,Pork in 0.45% 75.201 6.516 NaCl 25,000 unit In 0.45 % NaCl 1 250ml.bag @ 12 UNITS/KG/HR 9.308 mls/hr IV .Q24H [facility] Rx#: [id number] Oral 1080 Other: Voiding Method Toilet Toilet # Voids 2 Weight 77.564 kg - Constitutional General appearance: no acute distress - Respiratory Respiratory: bilateral: CTA - Cardiovascular Rhythm: regular Heart sounds: normal: S1, S2 Results 05/19/20 04:16 05/18/20 16:09 Cardiac Enzymes 05/18/20 05/18/20 05/18/20 Range/Units 16:09 16:09 18:53 AST 30 (17-59) U/L Troponin I <0.012 0.020 (0.000-0.034) ng/mL 05/18/20 Range/Units 21:22 AST (17-59) U/L Troponin I <0.012 (0.000-0.034) ng/mL Coagulation 05/18/20 05/18/20 05/19/20 Range/Units 16:09 21:22 04:16 PT 9.7 10.3 (9.0-12.0) sec APTT 19.1 L 91.4 H 34.5 H (22.0-30.0) sec Lipids 05/19/20 Range/Units 04:16 Triglycerides 251 H (<150) mg/dL Cholesterol 146 (<200) mg/dL HDL Cholesterol 53 (40-60) mg/dL CBC 05/18/20 05/19/20 Range/Units 16:09 04:16 WBC 12.9 H 9.1 (3.8-10.6) k/uL RBC 4.91 4.26 L (4.30-5.90) m/uL Hgb 15.8 14.3 (13.0-17.5) gm/dL Hct 46.6 40.7 (39.0-53.0) % Plt Count 247 199 (150-450) k/uL Comprehensive Metabolic Panel 05/18/20 Range/Units 16:09 Sodium 138 (137-145) mmol/L Potassium 3.9 (3.5-5.1) mmol/L Chloride 106 (98-107) mmol/L Carbon Dioxide 22 (22-30) mmol/L BUN 20 (9-20) mg/dL Creatinine 0.59 L (0.66-1.25) mg/dL Glucose 105 H (74-99) mg/dL Calcium 10.0 (8.4-10.2) mg/dL AST 30 (17-59) U/L ALT 22 (4-49) U/L Alkaline Phosphatase 96 (38-126) U/L Total Protein 7.4 (6.3-8.2) g/dL Albumin 4.8 (3.5-5.0) g/dL Current Medications Generic Name Dose Route Start Last Admin Trade Name Bernardoq PRN Reason Stop Dose Admin Amlodipine Besylate 10 mg 05/20/20 09:00 Norvasc PO DAILY [facility] Aspirin 325 mg 05/19/20 09:00 05/19/20 06:40 Aspirin PO 325 mg DAILY [facility] Administration Atorvastatin Calcium 40 mg 05/19/20 09:00 05/19/20 06:50 Lipitor PO Not Given DAILY [facility] Cholecalciferol 1,000 unit 05/19/20 09:00 05/19/20 06:40 Vitamin D3 (25 Mcg = 1000 Iu) PO 1,000 unit DAILY [facility] Administration Heparin Sodium/Sodium Chloride 250 mls @ 9.308 mls/hr 05/18/20 19:15 05/19/20 07:29 25,000 unit/ Sodium Chloride IV 14 units/kg/hr .Q24H [facility] 10.859 mls/hr Titration Protocol 12 UNITS/KG/HR Sodium Chloride 1,000 ml/ IV 1,000 mls @ 77.564 mls/hr 05/18/20 21:08 05/18/20 22:15 Solution IV 05/19/20 10:01 77.564 mls/hr .[id number] ONE Administration 1 ML/KG/HR Metoprolol Tartrate 12.5 mg 05/18/20 21:00 05/19/20 06:40 Lopressor PO 12.5 mg BID [facility] Administration Multivitamins 1 each 05/19/20 09:00 05/19/20 06:40 Theragran PO 1 each DAILY [facility]A Administration Nitroglycerin 0.4 mg 05/18/20 16:09 Nitrostat SUBLINGUAL Q5M PRN Chest Pain Pantoprazole Sodium 40 mg 05/19/20 09:00 05/19/20 06:41 Protonix PO 40 mg DAILY [facility] Administration Intake and Output 05/18/20 05/19/20 05/19/20 22:59 06:59 14:59 Intake Total 1080 75.201 6.516 Balance 1080 75.201 6.516 Intake: Intake, IV Titration 75.201 6.516 Amount Heparin Sod,Pork in 0.45% 75.201 6.516 NaCl 25,000 unit In 0.45 % NaCl 1 250ml.bag @ 12 UNITS/KG/HR 9.308 mls/hr IV .Q24H [facility] Rx#: [id number] Oral 1080 Other: Voiding Method Toilet Toilet # Voids 2 Weight 77.564 kg 05/19/20 04:16 05/18/20 16:09 Assessment and Plan Assessment: Assessment #1 atypical chest discomfort #2 coronary artery disease and prior revascularization #3 hypertension Plan #1 acute coronary event was ruled out #2 I will schedule the patient to undergo a stress test #3 further recommendation to follow that
--- NOTE | 2020-05-19 11:02 | P.PN ---
Subjective Progress Note Date: 05/19/20 Pt continues to report chest pain and lightheadedness today. Plan for Stress test today, then more to follow. Objective - Vital Signs Vital signs: Vital Signs Temp 98 F 05/19/20 09:00 Pulse 59 L 05/19/20 09:00 Resp 16 05/19/20 09:00 BP 124/49 05/19/20 09:00 Pulse Ox 97 05/19/20 09:00 Intake & Output 05/18/20 05/19/20 05/19/20 18:59 06:59 18:59 Intake Total 1155.201 6.516 Balance 1155.201 6.516 Weight 77.564 kg Intake: Intake, IV Titration 75.201 6.516 Amount Heparin Sod,Pork in 0.45% 75.201 6.516 NaCl 25,000 unit In 0.45 % NaCl 1 250ml.bag @ 12 UNITS/KG/HR 9.308 mls/hr IV .Q24H NURA Rx#: [id number] Oral 1080 Other: Voiding Method Toilet # Voids 2 2 - Exam Gen: awake, alert HEENT: normocephalic, atraumatic, good hearing acuity, moist mucous membranes Resp: CTAB, good air exchange, no accessory muscle use, no wheezes, crackles, rhonchi CVS: good distal perfusion x 4, RRR, no murmurs, clicks, gallops GI: soft, NTTP, ND : no SPT, no CVAT, mott catheter not present MSK: no pitting edema, no clubbing Neuro: non-focal, no sensory deficits, appropriate tone Psych: cooperative, euthymic mood - Labs CBC & Chem 7: 05/19/20 04:16 05/18/20 16:09 Labs: Abnormal Lab Results - Last 24 Hours (Table) 05/18/20 05/18/20 05/18/20 Range/Units 16:09 16:09 16:09 WBC 12.9 H (3.8-10.6) k/uL RBC (4.30-5.90) m/uL Neutrophils # 9.6 H (1.3-7.7) k/uL APTT 19.1 L (22.0-30.0) sec Creatinine 0.59 L (0.66-1.25) mg/dL Glucose 105 H (74-99) mg/dL Triglycerides (<150) mg/dL 05/18/20 05/19/20 05/19/20 Range/Units 21:22 04:16 04:16 WBC (3.8-10.6) k/uL RBC 4.26 L (4.30-5.90) m/uL Neutrophils # (1.3-7.7) k/uL APTT 91.4 H (22.0-30.0) sec Creatinine (0.66-1.25) mg/dL Glucose (74-99) mg/dL Triglycerides 251 H (<150) mg/dL 05/19/20 Range/Units 04:16 WBC (3.8-10.6) k/uL RBC (4.30-5.90) m/uL Neutrophils # (1.3-7.7) k/uL APTT 34.5 H (22.0-30.0) sec Creatinine (0.66-1.25) mg/dL Glucose (74-99) mg/dL Triglycerides (<150) mg/dL Assessment and Plan Assessment: Unstable angina -Cardiology consulted: will proceed with stress test today -Continue with heparin infusion, aspirin, Lipitor -Cardiac monitoring -Nitroglycerin when necessary -Supplemental oxygen -Trend troponin Chronic conditions: Hypertension, hyperlipidemia -Continue with home meds DVT prophylaxis -Heparin infusion The patient is admitted with an anticipated less than 2 midnight stay for evaluation of unstable angina CODE STATUS: Full COde Discussed with: Patient Anticipated discharge date: 1-[address]: Home A total of 40 minutes was spent on the care of this complex patient more than 50% of the time was spent in counseling and care coordination
[2020-05-19 16:54] VITALS: BP 130/67; PULSE 61; TEMP 98.2
--- NOTE | 2020-05-19 17:39 | P.DS ---
Providers Date of admission: 05/18/20 16:09 Attending physician: Chucky Moreno MD Consults: 05/18/20 16:09 Consult Physician Urgent Consulting Provider: Tadeo Hillman Consult Reason/Comments: cp Do you want consulting provider notified?: Yes Primary care physician: Stated None Hospital Course: Unstable angina 70 year old man with coronary artery disease status post multiple stents, active tobacco abuse, hypertension, and hyperlipidemia presented with chest pain. Troponins were negative and EKG had TWi in v1/v2. Cardiology consulted: pt underwent stress test and no intervention done, pt deemed stable for discharge with uptitrated amlodipine, and nitro PRN for chest pain. Pt to follow up with PCP and cardiology. Patient Condition at Discharge: Fair Plan - Discharge Summary Discharge Rx Participant: No New Discharge Prescriptions: New Nitroglycerin Sl Tabs [Nitrostat] 0.4 mg SUBLINGUAL Q5M PRN #30 tab PRN Reason: Chest Pain amLODIPine [Norvasc] 10 mg PO DAILY #30 tab Continue Fish Oil/Dha/Epa [Fish Oil 1,200 mg Fish Oil] 1 cap PO DAILY Cholecalciferol [Vitamin D3 (25 Mcg = 1000 Iu)] 1,000 unit PO DAILY Multivitamins, Thera [Multivitamin (formulary)] 1 tab PO DAILY Aspirin [Adult Low Dose Aspirin EC] 81 mg PO DAILY Omeprazole 20 mg PO DAILY Metoprolol Tartrate 12.5 mg PO BID Atorvastatin Calcium [Lipitor] 40 mg PO DAILY Ubidecarenone [Co Q-10] 200 mg PO DAILY Albuterol Sulfate [Ventolin HFA] 1 - 2 puff INHALATION RT-QID PRN PRN Reason: Shortness Of Breath Discontinued amLODIPine [Norvasc] 5 mg PO DAILY Discharge Medication List Aspirin [Adult Low Dose Aspirin EC] 81 mg PO DAILY 05/16/20 [History] Atorvastatin Calcium [Lipitor] 40 mg PO DAILY 05/16/20 [History] Cholecalciferol [Vitamin D3 (25 Mcg = 1000 Iu)] 1,000 unit PO DAILY 05/16/20 [History] Fish Oil/Dha/Epa [Fish Oil 1,200 mg Fish Oil] 1 cap PO DAILY 05/16/20 [History] Metoprolol Tartrate 12.5 mg PO BID 05/16/20 [History] Multivitamins, Thera [Multivitamin (formulary)] 1 tab PO DAILY 05/16/20 [History] Omeprazole 20 mg PO DAILY 05/16/20 [History] Ubidecarenone [Co Q-10] 200 mg PO DAILY 05/16/20 [History] Albuterol Sulfate [Ventolin HFA] 1 - 2 puff INHALATION RT-QID PRN 05/17/20 [History] Nitroglycerin Sl Tabs [Nitrostat] 0.4 mg SUBLINGUAL Q5M PRN #30 tab 05/19/20 [Rx] amLODIPine [Norvasc] 10 mg PO DAILY #30 tab 05/19/20 [Rx] Follow up Appointment(s)/Referral(s): None,Stated [Primary Care Provider] - 1-2 days
[2020-05-20] MEDS ORDERED: amLODIPine 10 MG TAB PO SCH (09:00)
--- NOTE | 2020-05-20 09:18 | ECHOS ---
STRESS ECHOCARDIOGRAM LUMASON: - Vial INDICATIONS: Chest pain MEDICATIONS: BASELINE HEART RATE: 62 BASELINE BLOOD PRESSURE: 132/64 MAXIMUM HEART RATE: 132 MAXIMUM BLOOD PRESSURE: 175/40 85% MPHR: 127 100% MPHR: 149 METS: 8.5 MAXIMUM STAGE REACHED: 3 TOTAL EXERCISE TIME: 7:00 CLINICAL INFORMATION: I STRESS DATA: Heart rate 62, pressure 132/64 mmHg. Baseline EKG showed sinus mechanism. The patient exercised on the treadmill according to Jasson protocol for a total of 7 minutes and achieved 8.5 METS. Max heart rate was 132, which is about 88% of maximum predicted heart rate. Maximum blood pressure was 192/67 mmHg. Clinically the patient did not have any symptoms of chest pain or chest discomfort and the EKG did not show any significant ST or T-wave abnormalities concerning for ischemia. ECHOCARDIOGRAM IMAGES: Echocardiogram images from parasternal long axis view, parasternal short axis view, apical 4-chamber and apical 2-chamber views were obtained as the baseline images, at the peak of the heart rate as well as on recovery. The echocardiogram images showed good augmentation in the left ventricular systolic function without any evidence of wall motion abnormalities concerning for ischemia. CONCLUSION: 1. Excellent exercise tolerance. 2. Normal EKG in response to exercise. 3. Normal echocardiogram response to exercise. 4. Essentially normal stress echocardiogram for the patient. MMODL / IJN: [id number] /
== END 2020-05-19 17:49 | disposition home or self-care (01) ==
LOC: EC 15:35 → 3NCARDOBS 16:09
PROVIDERS: ADMIT Internal Medicine; ATTEND Internal Medicine
DX: I25.110 Atherosclerotic heart disease of native coronary artery with unstable angina pectoris (principal); Z95.5 Presence of coronary angioplasty implant and graft; I10 Essential (primary) hypertension; E78.5 Hyperlipidemia, unspecified; F17.200 Nicotine dependence, unspecified, uncomplicated; J44.9 Chronic obstructive pulmonary disease, unspecified; E78.00 Pure hypercholesterolemia, unspecified; Z79.899 Other long term (current) drug therapy; Z79.82 Long term (current) use of aspirin
CPT/HCPCS: 96365; 96366 ×2; 96376; 99285; 36415; 93005; 93351; 80061; 80053; 83735; 84484; 85025 ×2; 85610 ×2; 85730 ×2; 71046; G0378 ×2; J1644 ×2